=== PATIENT | male | born 1990 | race Caucasian/White ===

== ENCOUNTER 2022-05-13 10:05 | Emergency (ER) | payer MEDICAID ==
[2022-05-13 11:00] VITALS: BP 114/70; PULSE 88
[2022-05-13] MEDS ORDERED: Alum Hydrox/Mag Hydrox/Simeth 15 ML, Lidocaine 2% 15 ML PO ONE ×2 (11:33)
[2022-05-13 12:28] LABS: CORONAVIRUS COVID-19 NAA NEGATIVE (NEGATIVE)
== END 2022-05-13 13:24 | disposition home or self-care (01) ==
LOC: JP.ED 10:05
DX: J02.9 Acute pharyngitis, unspecified (principal); F17.210 Nicotine dependence, cigarettes, uncomplicated; Z20.822 Contact with and (suspected) exposure to COVID-19
CPT/HCPCS: 0241U; 36415; 85025; 86308; 87081; 87880; 99284; A9270

== ENCOUNTER 2022-05-14 00:59 | Emergency (ER) | payer MEDICAID ==
[2022-05-14] MEDS ORDERED: cefTRIAXone 2 GM in Sodium Chloride 0.9% 50 ML IV ONE (02:21)
[2022-05-14] MEDS ORDERED: Sodium Chloride 0.9% 10 ML Syringe FLUSH PRN (02:21)
[2022-05-14] MEDS ORDERED: Sodium Chloride 0.9% 1,000 ML IV SCH (02:30)
[2022-05-14 03:48] VITALS: BP 121/64; PULSE 86
== END 2022-05-14 04:14 | disposition home or self-care (01) ==
LOC: JP.ED 00:59
DX: J03.90 Acute tonsillitis, unspecified (principal); Z72.0 Tobacco use
CPT/HCPCS: 96365; 99283; J0696; J3490; J7030

== ENCOUNTER 2023-05-17 17:27 | Emergency (ER) | payer MEDICAID | END 2023-05-17 18:18 | disposition left against medical advice (07) | LOC: JP.ED 17:27 | DX: Z53.21 Procedure and treatment not carried out due to patient leaving prior to being seen by health care provider (principal) ==

== ENCOUNTER 2023-05-18 08:12 | Emergency (ER) | payer MEDICAID ==
[2023-05-18 08:27] VITALS: BP 136/80; PULSE 57
[2023-05-18] MEDS ORDERED: hydrOXYzine HCL 100 MG/2 ML SDV IM ONE (08:50)
[2023-05-18] MEDS ORDERED: methylPREDNISolone Sodium Succinate 40 MG/1 ML SDV IM ONE (08:50)
== END 2023-05-18 09:17 | disposition home or self-care (01) ==
LOC: JP.ED 08:12
DX: L24.9 Irritant contact dermatitis, unspecified cause (principal)
CPT/HCPCS: 96372; 99282; 99283; J2920; J3410

== ENCOUNTER 2023-07-28 19:18 | Emergency (ER) | payer MEDICAID ==
[2023-07-28] MEDS: Acetaminophen/oxyCODONE 325-5 MG Tab PO ONE (20:13)
[2023-07-28 21:43] VITALS: BP 124/70; PULSE 65
== END 2023-07-28 21:35 | disposition home or self-care (01) ==
LOC: JP.ED 19:18
DX: S60.221A Contusion of right hand, initial encounter (principal); W31.2XXA Contact with powered woodworking and forming machines, initial encounter
CPT/HCPCS: 29125; 73130; 99283; A9270

== ENCOUNTER 2023-08-08 00:22 | Emergency (ER) | payer MEDICAID ==
[2023-08-08 00:35] VITALS: BP 138/73; PULSE 56
== END 2023-08-08 01:16 | disposition home or self-care (01) ==
LOC: JP.ED 00:22
DX: S43.401A Unspecified sprain of right shoulder joint, initial encounter (principal); Z86.16 Personal history of COVID-19; X58.XXXA Exposure to other specified factors, initial encounter
CPT/HCPCS: 73030-26-RT; 73030-RT; 99283; 99284

== ENCOUNTER 2023-08-29 07:57 | Day surgery (SDC) | payer MEDICAID ==
[~2023-08-29 07:57] MED LIST: Bupivacaine 0.5% 30 ML SDV ONE; Midazolam 1 MG/ML 2 ML SDV ONE; Propofol 200 MG/20 ML SDV ONE; fentaNYL 100 MCG/2 ML SDV ONE
[2023-08-29 08:20] LABS: HEMATOCRIT 43.1 % (38.4-49.7); HEMOGLOBIN 14.9 g/dL (12.9-16.9); MEAN CORPUSCULAR HEMOGLOBIN 29.4 pg (31.6-35.5); MEAN CORPUSCULAR HGB CONC 34.6 g/dL (31.6-35.5); MEAN CORPUSCULAR VOLUME 85.2 fL (81.4-99.0); RED BLOOD CELL COUNT 5.06 M/uL (4.14-5.76); WHITE BLOOD CELL COUNT,WBC 6.2 K/uL (3.2-11.0)
[2023-08-29 08:35] LABS: ANION GAP 10.7 mmol/L (5.0-14.0); CALCIUM 8.1 mg/dL (8.5-10.1); EST CRCL DRUG DOSING (CG) 117.53 mL/min; POTASSIUM,K 3.7 mmol/L (3.6-5.2)
[2023-08-29] MEDS: Lactated Ringers 1,000 ML IV SCH (08:43)
[2023-08-29] MEDS: Nozin Nasal Sanitizer NASBOTH ONE (08:43)
[2023-08-29] MEDS: Dextrose 5%-Lactated Ringers 1,000 ML IV SCH (09:10)
[2023-08-29] MEDS ORDERED: fentaNYL 100 MCG/2 ML SDV ONE ×3 (09:41→11:17)
[2023-08-29] MEDS: ceFAZolin 2 GM in Premix Bag 1 BAG IV ONE (09:45)
[2023-08-29] MEDS ORDERED: Ondansetron 4 MG/2 ML SDV ONE (09:50)
[2023-08-29] MEDS ORDERED: Dexamethasone 4 MG/ML SDV ONE (09:50)
[2023-08-29] MEDS: Bupivacaine 0.5% 50 ML MDV ONE (10:30)
[2023-08-29] MEDS ORDERED: Lactated Ringers 1,000 ML ONE (11:28)
[2023-08-29] MEDS: Ondansetron 4 MG/2 ML SDV IVPUSH ONE (12:34)
[2023-08-29] MEDS ORDERED: Naloxone 0.4 MG/ML SDV IVPUSH PRN (13:21)
[2023-08-29] MEDS: Morphine 2 MG/ML SYRINGE IVPUSH PRN (13:35)
[2023-08-29] MEDS: Scopalamine 1mg/3day Transdermal Patch TRDERM PRN (13:35)
[2023-08-29] MEDS: Acetaminophen/oxyCODONE 325-5 MG Tab PO PRN (14:04)
[2023-08-29 14:50] VITALS: BP 147/84; PULSE 57
== END 2023-08-29 14:50 | disposition home or self-care (01) ==
LOC: JP.SDS 07:57
PROVIDERS: ATTEND Specialist
DX: S43.431A Superior glenoid labrum lesion of right shoulder, initial encounter (principal); F41.9 Anxiety disorder, unspecified; Z87.891 Personal history of nicotine dependence
CPT/HCPCS: 29807; 36415; 80048; 85027; A9270; C1713; J0690; J1100; J2250; J2270; J2405; J2704; J3010; J3490; J7120; J7121; J0665

== ENCOUNTER 2024-07-07 14:38 | Emergency (ER) | payer MEDICAID ==
[2024-07-07 15:11] VITALS: BP 127/86; PULSE 63
[2024-07-07] MEDS: Cyclobenzaprine 10 MG Tab PO ONE (15:30)
[2024-07-07] MEDS: Ketorolac 30 MG/ML SDV IM ONE (15:30)
== END 2024-07-07 17:37 | disposition home or self-care (01) ==
LOC: JP.ED 14:38
DX: M51.370 Other intervertebral disc degeneration, lumbosacral region with discogenic back pain only (principal); Z86.16 Personal history of COVID-19; Z79.899 Other long term (current) drug therapy
CPT/HCPCS: 72131; 76377; 96372; 99284; A9270; J1885